=== PATIENT | female | born 1945 | race Caucasian/White ===

== ENCOUNTER → 2021-11-05 | Outpatient (CLI) | payer MEDICARE, BC, OTHER ==
[2021-11-05 10:26] LABS: BASO # 0.1 10^3/uL (0.0-0.2); BASO % 0.5 % (0.0-1.0); EOS # 0.1 10^3/uL (0.0-0.5); EOS % 0.9 % (0.0-3.0); HEMATOCRIT 41.7 % (36.0-47.0); LYMPH # 1.2 10^3/uL (1.5-5.0); LYMPH % 10.9 % (24.0-44.0); MEAN CORPUSCULAR HEMOGLOBIN 28.8 pg (27.0-33.0); MEAN CORPUSCULAR HGB CONC 31.2 g/dl (32.0-36.5); MEAN CORPUSCULAR VOLUME 92.3 fl (80.0-96.0); MONO # 0.7 10^3/uL (0.0-0.8); MONO % 6.2 % (2.0-8.0); NEUTROPHILS # 8.5 10^3/uL (1.5-8.5); NEUTROPHILS % 80.6 % (36.0-66.0); PLATELET COUNT, AUTOMATED 250 10^3/uL (150-450); RED BLOOD COUNT 4.52 10^6/uL (4.00-5.40); WHITE BLOOD COUNT 10.5 10^3/uL (4.0-10.0)
[2021-11-05 10:44] LABS: HEMOGLOBIN A1c 7.1 %
[2021-11-05 10:59] LABS: ALBUMIN 3.2 GM/DL (3.2-5.2); ALT/SGPT 33 U/L (12-78); BILIRUBIN,TOTAL 0.4 MG/DL (0.2-1.0); BLOOD UREA NITROGEN 14 MG/DL (7-18); CALCIUM LEVEL 9.3 MG/DL (8.8-10.2); CARBON DIOXIDE LEVEL 27 MEQ/L (21-32); CHLORIDE LEVEL 108 MEQ/L (98-107); CREATININE FOR GFR 1.01 MG/DL (0.55-1.30); GLOMERULAR FILTRATION RATE 56.6 (>39); GLUCOSE, FASTING 209 MG/DL (70-100); POTASSIUM SERUM 4.6 MEQ/L (3.5-5.1); RHEUMATOID FACTOR QUANT < 10.0 IU/ML (<15.0); SODIUM LEVEL 142 MEQ/L (136-145); TOTAL PROTEIN 6.5 GM/DL (6.4-8.2)
[2021-11-05 11:19] LABS: ERYTHROCYTE SEDIMENTATION RATE 26 mm/hr (0-30)
[2021-11-05 15:31] LABS: TOTAL 25(OH) VITAMIN D 26.4 NG/ML (30.0-100.0)
[2021-11-05 15:33] LABS: FOLATE 7.7 NG/ML
[2021-11-05 15:35] LABS: VITAMIN B12 LEVEL > 2000 PG/ML
[2021-11-06 11:44] LABS: ALBUMIN 3.51 GM/DL (3.29-5.55); ALPHA-1-GLOBULIN % 6.8 % (2.9-4.9); ALPHA-1-GLOBULINS 0.44 GM/DL (0.17-0.41); ALPHA-2-GLOBULINS 0.97 GM/DL (0.42-0.99); ALPHA-2-GLOBULINS % 14.9 % (7.1-11.8); BETA-1-GLOBULINS 0.47 GM/DL (0.28-0.60); BETA-1-GLOBULINS % 7.3 % (4.7-7.2); BETA-2-GLOBULINS 0.38 GM/DL (0.19-0.55); BETA-2-GLOBULINS % 5.8 % (3.2-6.5); GAMMA GLOBULIN % 11.2 % (11.1-18.8); GAMMA GLOBULINS 0.73 GM/DL (0.65-1.58)
== END ==
LOC: M PLALAB 08:20
PROVIDERS: ATTEND Psychiatry & Neurology Neurology
DX: R41.89 Other symptoms and signs involving cognitive functions and awareness (principal); Z79.899 Other long term (current) drug therapy